=== PATIENT | female | born 1965 | race Two or more races ===

== ENCOUNTER 2019-11-05 20:51 | Emergency (ER) | payer MEDICAID ==
[~2019-11-05] VITALS: Ht 154.9 cm; Wt 61.4 kg
[2019-11-05 21:06] VITALS: BP 146/90; Ht 154.9 cm; Wt 61.4 kg
[2019-11-06] MEDS ORDERED: VISTARIL25 MG PO (02:04)
== END 2019-11-06 02:52 | disposition home or self-care (01) ==
LOC: D.ER 20:51
DX: M54.5 Low back pain (principal); G89.29 Other chronic pain; F41.9 Anxiety disorder, unspecified